=== PATIENT | male | born 1995 | race Caucasian/White ===

== ENCOUNTER 2022-10-10 16:24 | Emergency (ER) | payer MEDICAID ==
[~2022-10-10] VITALS: Ht 172.7 cm; Wt 88.0 kg
[2022-10-10 16:37] VITALS: BP 136/87
[2022-10-10] MEDS ORDERED: ERYT1OIN6 RIGHTEYE (17:40)
[2022-10-10] MEDS ORDERED: CLIN300C3 MT (17:40)
[2022-10-10] MEDS ORDERED: CLINDAMYCIN HCL 150MG CAPSULE PO ONE (17:45)
== END 2022-10-10 18:26 | disposition home or self-care (01) ==
LOC: ER 16:24
DX: H04.301 Unspecified dacryocystitis of right lacrimal passage (principal); R03.0 Elevated blood-pressure reading, without diagnosis of hypertension
CPT/HCPCS: 99283

== ENCOUNTER 2024-12-22 18:34 | Emergency (ER) | payer MEDICAID ==
[~2024-12-22] VITALS: Ht 170.2 cm; Wt 81.6 kg
[~2024-12-22 18:34] MED LIST: CLIN300C3 MT; ERYT1OIN6 RIGHTEYE
[2024-12-22 19:10] VITALS: TEMP 36.7; O2SAT 97
[2024-12-22 20:09] LABS: BASOPHILS % 0.9 % (0.0-2.0); HEMATOCRIT. 45.4 % (42.0-52.0); HEMOGLOBIN. 15.9 g/dL (14.0-18.0); LYMPHOCYTES % 38.8 % (20.0-50.0); MEAN CORPUSCULAR HEMOGLOBIN 30.5 pg (28.0-32.0); MEAN CORPUSCULAR HGB CONC 35.1 g/dL (31.0-37.0); MEAN CORPUSCULAR VOLUME 86.8 fL (80.0-94.0); MEAN PLATELET VOLUME 8.7 fl (7.4-10.4); MONOCYTES % 9.2 % (2.0-8.0); NEUTROPHILS % 48.1 % (40.0-76.0); PLATELET 228 x1000/uL (130-400); RED BLOOD CELL COUNT 5.23 mill/uL (4.7-6.1)
[2024-12-22 20:15] LABS: CHLORIDE 103 mEq/L (98-107)
[2024-12-22 20:16] LABS: POTASSIUM 3.6 mEq/L (3.5-5.1); SODIUM 139 mEq/L (136-145)
[2024-12-22 20:17] LABS: CALCIUM 10.6 mg/dL (8.7-10.4); CARBON DIOXIDE 27 mEq/L (21-32)
[2024-12-22] MEDS: KETOROLAC 15MG/ML VIAL IM ONE (20:19)
[2024-12-22 20:22] LABS: CREATININE 0.8 mg/dL (0.6-1.3); GLUCOSE 116 mg/dL (70-105); UREA NITROGEN BLOOD 15 mg/dL (9-23)
[2024-12-22 20:24] LABS: ALANINE AMINOTRANSFERASE 85 IU/L (10-49); ALBUMIN 4.7 g/dL (3.2-4.8); ASPARTATE AMINOTRANSFERASE 43 IU/L (<34); BILIRUBIN DIRECT 0.2 mg/dL (<=3.0); BILIRUBIN TOTAL 0.9 mg/dL (0.1-1.0)
[2024-12-22] MEDS ORDERED: MAG-55 MT (21:57)
[2024-12-23 01:05] LABS: CLARITY URINE CLEAR (CLEAR); COLOR URINE YELLOW (YELLOW); GLUCOSE URINE NEGATIVE (NEGATIVE); KETONES URINE NEGATIVE (NEGATIVE); LEUKOCYTE ESTERASE URINE NEGATIVE (NEGATIVE); NITRITE URINE NEGATIVE (NEGATIVE); OCCULT BLOOD URINE TRACE (NEGATIVE); PH URINE 5.5 (4.5-8.0); PROTEIN URINE TRACE (NEGATIVE); SPECIFIC GRAVITY URINE 1.023 (1.005-1.030); UROBILINOGEN URINE 0.2 E.U./dL (0.2-1.0)
[2024-12-23 01:30] VITALS: BP 130/86; PULSE 90; RESP 14; O2SAT 98
[2024-12-23 05:23] LABS: BACTERIA URINE NONE SEEN; RBC URINE 0-2 /hpf (0-2); SQUAMOUS EPITHELIAL CELL URINE FEW /lpf (RARE/1+); WBC URINE 0-2 /hpf (0-2)
== END 2024-12-23 01:33 | disposition home or self-care (01) ==
LOC: ER 18:34
DX: R10.32 Left lower quadrant pain (principal)
CPT/HCPCS: 99285; 74176; 80076; 80048; 83690; 85025; 36415; 96372; 81003; J1885